=== PATIENT | male | born 1950 | race Caucasian/White ===

== ENCOUNTER 2017-05-16 13:29 | Day surgery (SDC) | payer OTHER ==
[~2017-05-16] VITALS: Ht 175.3 cm; Wt 99.0 kg
[~2017-05-16 13:29] MED LIST: 0.9% Sodium Chloride 1,000 ML IV PRN; CYCL10TA9 PO; GABA-502 PO; MORP30TA PO; PROP10TA8 PO; Sodium Chloride LOK Flush 10 mL Syringe IV PRN; ZOLP10TA5 PO; fentaNYL-PF 50 mCg/mL 2 mL Inj IVPUSH PRN
[2017-05-16] MEDS ORDERED: Propofol 10,000 mCg/mL 20 mL Inj ONE (13:30)
[2017-05-16] MEDS ORDERED: Ketamine 10 mg/mL 20 mL Inj ONE (13:30)
[2017-05-16] MEDS ORDERED: ASPI-973 PO (14:28)
[2017-05-16 14:37] VITALS: BP 146/83; PULSE 54; RESP 14; O2SAT 98
[2017-05-16] MEDS ORDERED: Lactated Ringer's 1,000 ML IV ONE (15:08)
[2017-05-16 15:26] VITALS: BP 135/86; PULSE 54; RESP 16; O2SAT 95
[2017-05-16 15:36] VITALS: BP 124/77; PULSE 63; RESP 16; O2SAT 97
--- NOTE | 2017-05-16 15:42 | ENDO ---
[address] [address] ENDOSCOPY PROCEDURE PATIENT: DASHAWN GALE : 1950 MR#: [id number] ADMIT: 05/16/2017 JOB ID: [id number] DATE: 05/16/2017 TYPE OF OPERATION: Colonoscopy with biopsy. PREOPERATIVE DIAGNOSIS(ES): Rectal bleeding. POSTOPERATIVE DIAGNOSIS(ES): 1. A 2 mm rectal polyp removed by cold biopsy forceps. 2. Small internal hemorrhoids. ANESTHESIA: Monitored anesthesia care. COMPLICATION: None. BLOOD LOSS: Minimal. DESCRIPTION OF PROCEDURE: After risks and benefits were explained to the patient, informed consent was obtained. After anesthesia administered, colonoscope was then inserted from rectum to cecum. Mucosa carefully examined. Prep of the patient was fair. After procedure was done, the scope withdrawn and procedure terminated. FINDINGS: Upon inspection of the anus, no masses, hemorrhoids, ulcers or fissures that were seen. Throughout the entire examination, there was a 2 mm rectal polyp removed by cold biopsy forceps. No other polyps or masses were seen. Retroflexion showed small internal hemorrhoids. IMPRESSION: 1. Small internal hemorrhoids. 2. A 2 mm rectal polyp removed by cold biopsy forceps. RECOMMENDATION: Await pathology results. If tubular adenoma, then repeat colonoscopy in five years.
[2017-05-16 15:44] VITALS: BP 120/74; PULSE 55; RESP 16; O2SAT 98
--- NOTE | 2017-05-19 14:40 | PATH ---
SURGICAL PATHOLOGY Attending Physician:Avni Welch MD CASE STATUS: Signed Out PATIENT NAME: DASHAWN GALE PID: [id number] : 1950 DATE COLLECTED:05/16/2017 00:00 SPECIMEN: Colon, Polyp CLINICAL HISTORY: RECTAL BLEEDING, COLON POLYP 1). SIGMOID POLYP FINAL DIAGNOSIS: 1.SIGMOID COLON POLYP: HYPERPLASTIC POLYP. ICD10 D12.6 GROSS DESCRIPTION: The specimen is received in formalin, labeled with the patient's name, sublabeled as sigmoid polyp, and consists of a fragment of moffett-bernard, glistening, semi-translucent tissue (0.7 x 0.2 x 0.1 cm). Section code: (A) intact tissue. Specimen entirely submitted. ([id number]) MICRO DESCRIPTION: See diagnosis. ICD-9 CODES: CPT CODES: 1: 77375 Electronically Signed Out Mukesh Moran MD [facility] Pathology [facility] [address], [place] [address] Technical component performed at [facility], [facility] [address], [place], [address]
== END 2017-05-16 23:59 | disposition home or self-care (01) ==
LOC: END 13:29
PROVIDERS: ATTEND Internal Medicine Gastroenterology
DX: K62.1 Rectal polyp (principal); K64.8 Other hemorrhoids; Z86.010 Personal history of colon polyps; G47.30 Sleep apnea, unspecified; F43.10 Post-traumatic stress disorder, unspecified; C91.10 Chronic lymphocytic leukemia of B-cell type not having achieved remission
CPT/HCPCS: 45380; J2250; J7120